=== PATIENT | female | born 1975 ===

== ENCOUNTER 2017-03-22 15:20 | Emergency (ER) | payer OTHER ==
[~2017-03-22] VITALS: Ht 160 cm; Wt 94.5 kg
[2017-03-22 15:23] VITALS: BP 173/94; PULSE 102; RESP 16; TEMP 98.3; O2SAT 97
[2017-03-22 17:43] VITALS: BP 131/88; PULSE 92; RESP 17; TEMP 98.3; O2SAT 97
[2017-03-22] MEDS ORDERED: METF500T PO (17:45)
[2017-03-22] MEDS ORDERED: IBUPROFEN 600 MG TAB PO ONE (18:00)
[2017-03-22] MEDS ORDERED: CYCLOBENZAPRINE HCL 10 MG TAB PO ONE (18:00)
[2017-03-22] MEDS ORDERED: ACETAMINOPHEN/HYDROcodone 325 MG/5 MG TAB PO ONE (18:00)
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
[2017-03-22 19:03] VITALS: BP 122/78; PULSE 84; RESP 18; O2SAT 98
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
[2017-03-22] MEDS ORDERED: CYCL5TAB PO (20:17)
[2017-03-22] MEDS ORDERED: IBUP400T20 PO (20:17)
== END 2017-03-22 20:41 | disposition home or self-care (01) ==
LOC: NEPD 15:20
DX: S13.4XXA Sprain of ligaments of cervical spine, initial encounter (principal); S86.911A Strain of unspecified muscle(s) and tendon(s) at lower leg level, right leg, initial encounter; S46.912A Strain of unspecified muscle, fascia and tendon at shoulder and upper arm level, left arm, initial encounter; V49.40XA Driver injured in collision with unspecified motor vehicles in traffic accident, initial encounter
CPT/HCPCS: 72050; 72072; 73030; 73130; 73564; 99284; L0150